=== PATIENT | female | born 1945 ===

== ENCOUNTER 2017-12-19 06:08 | Emergency (ER) | payer MEDICARE ==
[2017-12-19] MEDS ORDERED: DiphenhydrAMINE 50 mg/ml Inj IVP STA (07:24)
--- NOTE | 2017-12-19 07:44 | C.PDOC ---
History Of Present Illness 72 year old female presents to ED for evaluation of gradual onset of right sided headache described as throbbing for the last 3 days. Notes taking Tylenol and Aspirin with minimal relief. Denies thunderclap headache, vision change, nausea, vomiting, chest pain, shortness of breath, neck pain, or fever. Time Seen by Provider: 12/19/17 07:11 Chief Complaint (Nursing): Headache History Per: Patient History/Exam Limitations: no limitations Onset/Duration Of Symptoms: Days (3) Current Symptoms Are (Timing): Still Present Preceeding Symptoms: None. denies: Visual Disturbances Associated Symptoms: denies: Photophobia, Blurred Vision, Nausea, Vomiting, Extremity Weakness Recent travel outside of the [place]: No Additional History Per: Patient Past Medical History Reviewed: Historical Data, Nursing Documentation, Vital Signs Vital Signs: Last Vital Signs Temp 98.6 F 12/19/17 12:32 Pulse 70 12/19/17 12:32 Resp 16 12/19/17 12:32 BP 109/68 12/19/17 12:32 Pulse Ox 97 12/19/17 12:32 - Medical History PMH: Hypercholesterolemia - [facility] Procedures COLONOSCOPY (09/13/03) ENDOSCOP DEST OF OTH LESION OR TISU OF LRG INTESTN (04/05/01) ESOPHAGOGASTRODUODENOSCOPY [EGD] W/CLOSED BIOPSY (09/13/03) Family History: States: Unknown Family Hx - Social History Hx Alcohol Use: No Hx Substance Use: No - Immunization History Hx Influenza Vaccination: No Hx Pneumococcal Vaccination: No Review Of Systems Except As Marked, All Systems Reviewed And Found Negative. Constitutional: Negative for: Fever, Chills Eyes: Negative for: Vision Change Cardiovascular: Negative for: Chest Pain, Palpitations Respiratory: Negative for: Cough, Shortness of Breath Gastrointestinal: Negative for: Nausea, Vomiting Musculoskeletal: Negative for: Neck Pain, Back Pain Neurological: Positive for: Headache. Negative for: Weakness, Numbness, Change in Speech, Dizziness Physical Exam - Physical Exam Appears: Non-toxic, No Acute Distress Skin: Normal Color, Warm, Dry Head: Atraumatic, Normacephalic Eye(s): bilateral: Normal Inspection, Other (no papilledema) Oral Mucosa: Moist Neck: Supple Cardiovascular: Rhythm Regular, No Murmur Respiratory: Normal Breath Sounds, No Rales, No Rhonchi, No Wheezing Gastrointestinal/Abdominal: Soft, No Tenderness Extremity: Normal ROM, No Deformity Neurological/Psych: Oriented x3, Normal Speech, Normal Cognition ED Course And Treatment - Laboratory Results Result Diagrams: 12/19/17 08:10 12/19/17 08:10 ECG: Interpreted By Me, Viewed By Me ECG Rhythm: Sinus Rhythm ECG Interpretation: No Acute Changes Interpretation Of ECG: Normal interval, left axis deviation, non-specific T wave changes. Rate From EC (bpm) O2 Sat by Pulse Oximetry: 96 (RA) Pulse Ox Interpretation: Normal - CT Scan/US Head CT Other Rad Studies (CT/US): Read By Radiologist, Radiology Report Reviewed CT/US Interpretation: IMPRESSION: No acute intracranial abnormality. If headache persists, consider MRI. At the level of the posterior right parietal region, there is a 8 millimeter rounded calcified extra-axial focus emanating from the inner table of the calvarium which may represent a calcified meningioma versus small bony exostosis versus additional etiology. Correlation with MRI may be helpful if clinically indicated. Sinus mucosal disease. Medical Decision Making Medical Decision Making: Head CT Blood work Urinalysis EKG Gayatri Jenkins Reassess Assessment: Headache On re-eval, pt reports feeling better, with improvement of headache. Patient is being discharged home with instructions to follow up with Dr. Uribe in 1-2 days for further evaluation. Return to ED if symptoms persist or worsen. Disposition Counseled Patient/Family Regarding: Studies Performed, Diagnosis, Need For Followup - Disposition Referrals: George Uribe MD [Staff Provider] - Disposition: HOME/ ROUTINE Disposition Time: 12:01 Condition: IMPROVED Additional Instructions: follow up with neurologist in 2 days call to make an appointment take medications as prescribed return to ER if symptoms worsens or progress Instructions: Acute Headache (ED) Forms: [facility] (Albanian), General Discharge Instructions - Clinical Impression Clinical Impression: Headache - Scribe Statement The provider has reviewed the documentation as recorded by the Anthonyibarianna Mcdermott All medical record entries made by the Scribe were at my direction and personally dictated by me. I have reviewed the chart and agree that the record accurately reflects my personal performance of the history, physical exam, medical decision making, and the department course for this patient. I have also personally directed, reviewed, and agree with the discharge instructions and disposition.
[2017-12-19] MEDS ORDERED: DiphenhydrAMINE 50 mg/ml Inj ONE (08:14)
[2017-12-19 08:15] LABS: BASO % 0.6 % (0.0-2.0); HEMOGLOBIN 12.4 g/dL (11.0-16.0); LYMPH # 0.8 K/uL (1.0-4.3); LYMPH % 24.1 % (20.0-40.0); MEAN CELL VOLUME 89.7 fL (81.0-99.0); MEAN CORPUSCULAR HEMOGLOBIN 31.8 pg (27.0-31.0); MEAN CORPUSCULAR HGB CONC 35.4 g/dL (33.0-37.0); MEAN PLATELET VOLUME 8.2 fL (7.2-11.7); MONO # 0.4 K/uL (0.0-0.8); MONO % 13.4 % (0.0-10.0); NEUT % 61.9 % (50.0-75.0); RBC 3.89 Mil/uL (3.80-5.20); RED CELL DISTRIBUTION WIDTH 12.8 % (11.5-14.5); WHITE BLOOD COUNT 3.3 K/uL (4.8-10.8)
[2017-12-19 08:26] LABS: CALCIUM 8.8 mg/dl (8.6-10.4); GFR AFRICAN-AMERICAN > 60; GFR NON-AFRICAN AMERICAN > 60
[2017-12-19 08:30] LABS: ALB/GLOB RATIO 1.2 (1.0-2.1); ALBUMIN 4.1 g/dL (3.5-5.0); ALT/SGPT 29 U/L (9-52); AST/SGOT 46 U/L (14-36); BLOOD UREA NITROGEN 11 mg/dL (7-17)
--- NOTE | 2017-12-19 11:07 | CT ---
PROCEDURE: CT HEAD WITHOUT CONTRAST. HISTORY: Headache COMPARISON: None available. TECHNIQUE: Axial computed tomography images were obtained through the head/brain without intravenous contrast. Radiation dose: Total exam DLP = 861 mGy-cm. This CT exam was performed using one or more of the following dose reduction techniques: Automated exposure control, adjustment of the mA and/or kV according to patient size, and/or use of iterative reconstruction technique. FINDINGS: HEMORRHAGE: No intracranial hemorrhage. BRAIN: No mass effect or edema. No atrophy or chronic microvascular ischemic changes. VENTRICLES: Unremarkable. No hydrocephalus. CALVARIUM: Unremarkable. PARANASAL SINUSES: Moderate mucosal thickening of the ethmoid air cells. Mild sinus mucosal mild sphenoid sinus mucosal thickening. MASTOID AIR CELLS: Unremarkable as visualized. No inflammatory changes. OTHER FINDINGS: At the level of the posterior right parietal region, there is an 8 millimeter rounded calcified extra-axial focus emanating from the inner table of the calvarium which may represent a calcified meningioma versus small bony exostosis versus additional etiology. Correlation with MRI may be helpful if clinically indicated. Intracranial vascular calcifications. IMPRESSION: No acute intracranial abnormality. If headache persists, consider MRI. At the level of the posterior right parietal region, there is a 8 millimeter rounded calcified extra-axial focus emanating from the inner table of the calvarium which may represent a calcified meningioma versus small bony exostosis versus additional etiology. Correlation with MRI may be helpful if clinically indicated. Sinus mucosal disease.
[2017-12-19 12:08] LABS: SQUAMOUS EPITHIAL 1 /hpf (0-5); URINE BILIRUBIN NEGATIVE (NEGATIVE); URINE BLOOD NEGATIVE (NEGATIVE); URINE CLARITY Clear (Clear); URINE COLOR Yellow (YELLOW); URINE GLUCOSE (UA) NORMAL (Normal); URINE LEUKOCYTE ESTERASE TRACE Leu/uL (Negative); URINE NITRATE NEGATIVE (NEGATIVE); URINE PROTEIN NEGATIVE (NEGATIVE); URINE UROBILINOGEN NORMAL mg/dL (0.2-1.0)
[2017-12-19 12:34] VITALS: BP 109/68; PULSE 70; RESP 16; TEMP 98.6
[2017-12-19 15:20] VITALS: O2SAT 96
--- NOTE | 2017-12-21 22:54 | CARD ---
APPROVED REPORT EKG Measurement Heart [id number] <Conclusion> Normal sinus rhythm Left axis deviation Nonspecific T wave abnormality Abnormal ECG
== END 2017-12-19 12:32 | disposition home or self-care (01) ==
LOC: C.ER 06:08
DX: R51 Headache (principal); E78.00 Pure hypercholesterolemia, unspecified
CPT/HCPCS: 70450; 80053; 81001; 84484; 85025; 85651; 96374; 96375; 99285; J1200; J1885; J2765

== ENCOUNTER 2017-12-20 06:56 | Emergency (ER) | payer MEDICARE ==
[2017-12-20 07:05] VITALS: TEMP 98.4
[2017-12-20] MEDS ORDERED: Sodium Chloride 0.9% 1,000 ML IV STA (07:48)
--- NOTE | 2017-12-20 07:53 | C.PDOC ---
History Of Present Illness 72-YEAR-OLD FEMALE, PRESENTS TO THE EMERGENCY DEPARTMENT WITH CO RECUR VAIL SINCE 0300. SEEN 12/19/17 FOR SAME, NEG CT HEAD. S/P REGLAN AND BENADRYL W IMPROVE BUT NOW W RECUR VAIL. PS HAVING VAIL X 4 DAYS. NORMALLY GETS VAIL EVERY 2 MONTHS, IMPROVES W OTC MIGRAINE RX BUT CURRENT VAIL MORE INTENSE THAN USUAL. DENIES OTHER NEW ASSOC SX SINCE LAST ER EVAL EXAM MILD DIST NONTOXIC HEENT NO PHOTOPHOBIA NECK SUPPLE NEURO INTACT REMAINDER NEG Time Seen by Provider: 12/20/17 07:33 Chief Complaint (Nursing): Headache History Per: Patient History/Exam Limitations: no limitations Past Medical History Reviewed: Historical Data, Nursing Documentation, Vital Signs Vital Signs: Last Vital Signs Temp 98.4 F 12/20/17 07:00 Pulse 73 12/20/17 13:45 Resp 20 12/20/17 13:45 BP 98/61 L 12/20/17 13:45 Pulse Ox 96 12/20/17 13:45 - Medical History PMH: Hypercholesterolemia Denies: Chronic Kidney Disease Surgical History: Appendectomy - [facility] Procedures COLONOSCOPY (09/13/03) ENDOSCOP DEST OF OTH LESION OR TISU OF LRG INTESTN (04/05/01) ESOPHAGOGASTRODUODENOSCOPY [EGD] W/CLOSED BIOPSY (09/13/03) Family History: States: No Known Family Hx - Social History Hx Alcohol Use: No Hx Substance Use: No - Immunization History Hx Tetanus Toxoid Vaccination: No Hx Influenza Vaccination: No Hx Pneumococcal Vaccination: No Review Of Systems Except As Marked, All Systems Reviewed And Found Negative. Constitutional: Negative for: Fever Cardiovascular: Negative for: Chest Pain, Palpitations Respiratory: Negative for: Shortness of Breath Gastrointestinal: Negative for: Nausea, Vomiting Musculoskeletal: Negative for: Neck Pain Neurological: Positive for: Headache. Negative for: Weakness, Numbness, Dizziness Physical Exam - Physical Exam Appears: Non-toxic, No Acute Distress Skin: Warm, Dry, No Rash Head: Atraumatic, Normacephalic Eye(s): bilateral: Other (No Photophobia) Nose: Normal Oral Mucosa: Moist Lips: Normal Appearing Neck: Normal ROM, Supple Chest: Symmetrical Cardiovascular: Rhythm Regular, No Murmur Respiratory: Normal Breath Sounds, No Accessory Muscle Use Extremity: Normal ROM Neurological/Psych: Oriented x3, Normal Speech ED Course And Treatment O2 Sat by Pulse Oximetry: 97 (on RA) Pulse Ox Interpretation: Normal Progress - Re-Evaluation Re-evaluation Note: 12/20/17 09:17 FEELS BETTER. NEURO INTACT [facility] FROM [facility]. 12/20/17 13:54 ps feels better requesting dc home. tolerating po wo diff - Data Reviewed Data Reviewed: Old records Disposition Counseled Patient/Family Regarding: Diagnosis, Need For Followup, Rx Given - Disposition Referrals: YOUR,PMD [Other] Disposition: HOME/ ROUTINE Disposition Time: 13:54 Condition: IMPROVED Prescriptions: Metoclopramide [Reglan] 1 tab PO TID PRN #25 tab PRN Reason: Nausea/Vomiting Instructions: Migraine Headache (ED) Forms: [employer] (Bengali) Print Language: SCOTTISH - Clinical Impression Clinical Impression: Migraine - Scribe Statement The provider has reviewed the documentation as recorded by the Scribe (Won Licea) All medical record entries made by the Scribe were at my direction and personally dictated by me. I have reviewed the chart and agree that the record accurately reflects my personal performance of the history, physical exam, medical decision making, and the department course for this patient. I have also personally directed, reviewed, and agree with the discharge instructions and disposition.
[2017-12-20] MEDS ORDERED: Sodium Chloride 0.9% 1,000 ML ONE (08:03)
[2017-12-20 13:46] VITALS: BP 98/61; PULSE 73; RESP 20
[2017-12-20 13:55] VITALS: O2SAT 97
== END 2017-12-20 14:15 | disposition home or self-care (01) ==
LOC: C.ER 06:56
DX: G43.909 Migraine, unspecified, not intractable, without status migrainosus (principal); E78.00 Pure hypercholesterolemia, unspecified
CPT/HCPCS: 96361; 96372; 96374; 96375; 99285; J1885; J2765; J3030; J7040